=== PATIENT | male | born 1980 | race Caucasian/White ===

== ENCOUNTER 2019-12-15 20:23 | Emergency (ER) | payer OTHER ==
[2019-12-15] MEDS ORDERED: Bacitracin 1 PK ONE (20:37)
== END 2019-12-15 21:02 | disposition home or self-care (01) ==
LOC: NAV ERS 20:23
DX: S61.212A Laceration without foreign body of right middle finger without damage to nail, initial encounter (principal); I10 Essential (primary) hypertension; E66.9 Obesity, unspecified; Z79.899 Other long term (current) drug therapy; W26.8XXA Contact with other sharp object(s), not elsewhere classified, initial encounter
CPT/HCPCS: 99283